=== PATIENT | female | born 1985 | race Hispanic/Latino ===

== ENCOUNTER 2018-06-03 19:44 | Emergency (ER) | payer MEDICAID ==
[2018-06-03 19:51] VITALS: BMI 27.9
[2018-06-03 19:57] VITALS: RESP 18; TEMP 98.1
--- NOTE | 2018-06-03 21:39 | ED PDOC ---
Arrival/HPI - General Chief Complaint: Headache Time Seen by Provider: 06/03/18 20:04 Historian: Patient - History of Present Illness Narrative History of Present Illness (Text): 06/03/18 21:25 33 year old female, whose past medical history includes SLE and Fibromyalgia, presents to the emergency department with fibromyalgia flareup. Patient informs she is having shoulder and upper back discomfort. Patient also complains of a hoarse voice which she states occurs when she has flareup. Patient denies any fever or chills. Patient denies any difficulty swallowing. Patient denies any headache, dizziness, chest pain, shortness of breath, cough, diaphoresis, abdominal pain, nausea, vomiting, diarrhea, or any other complaint. Time/Duration: Prior to Arrival Symptom Onset: Gradual Symptom Course: Unchanged Quality: Aching Activities at Onset: Light Context: Home Past Medical History - Provider Review Nursing Documentation Reviewed: Yes - Infectious Disease Hx of Infectious Diseases: None - Cardiac Hx Hypertension: Yes - Endocrine/Metabolic Hx Systemic Lupus Erythematosus: Yes - Hematological/Oncological Hx Anemia: Yes - Musculoskeletal/Rheumatological Hx Arthritis: Yes Hx Rheumatoid Arthritis: Yes - Psychiatric Hx Substance Use: No - Anesthesia Hx Anesthesia: No Family/Social History - Physician Review Nursing Documentation Reviewed: Yes Family/Social History: No Known Family HX Smoking Status: Never Smoked Hx Alcohol Use: No Hx Substance Use: No Allergies/Home Meds Allergies/Adverse Reactions: Allergies morphine Allergy (Verified 06/03/18 19:51) ANAPHYLAXIS Home Medications: Home Meds Medication Instructions Recorded Confirmed DULoxetine [Cymbalta] 1 cap PO HS 06/03/18 06/03/18 Naproxen [Naprosyn] 1 tab PO PRN PRN 06/03/18 06/03/18 Pregabalin [Lyrica] 1 cap PO DAILY 06/03/18 06/03/18 Review of Systems - Physician Review All systems were reviewed & negative as marked: Yes - Review of Systems Constitutional: absent: Fevers, Night Sweats Respiratory: absent: SOB, Cough Cardiovascular: absent: Chest Pain Gastrointestinal: absent: Abdominal Pain, Diarrhea, Nausea, Vomiting Musculoskeletal: Back Pain Physical Exam Vital Signs Reviewed: Yes Vital Signs Temp Pulse Resp BP Pulse Ox 06/03/18 19:56 98.1 F 88 18 134/98 H 97 Temperature: Afebrile Blood Pressure: Hypertensive Pulse: Regular Respiratory Rate: Normal Appearance: Positive for: Well-Appearing, Non-Toxic, Comfortable Pain Distress: None Mental Status: Positive for: Alert and Oriented X 3 - Systems Exam Head: Present: Atraumatic, Normocephalic Pupils: Present: PERRL Extroacular Muscles: Present: EOMI Conjunctiva: Present: Normal Ears: Present: NORMAL TM Mouth: Present: Moist Mucous Membranes Pharnyx: Present: Normal. No: ERYTHEMA, Uvular Deviation, Strider, Soft Palate/Uvular Edema Neck: Present: Normal Range of Motion. No: Meningeal Signs Respiratory/Chest: Present: Clear to Auscultation, Good Air Exchange. No: Respiratory Distress, Accessory Muscle Use Cardiovascular: Present: Regular Rate and Rhythm, Normal S1, S2. No: Murmurs Abdomen: No: Tenderness, Distention, Peritoneal Signs Back: Present: Normal Inspection Upper Extremity: Present: Normal Inspection, Normal ROM. No: Cyanosis, Edema Lower Extremity: Present: Normal Inspection, Normal ROM. No: Edema Neurological: Present: GCS=15, CN II-XII Intact, Speech Normal, Motor Func Grossly Intact, Normal Sensory Function Skin: Present: Warm, Dry, Normal Color. No: Rashes Psychiatric: Present: Alert, Oriented x 3, Normal Insight, Normal Concentration Medical Decision Making ED Course and Treatment: 06/03/18 21:41 Impression: 33 year old female presents with fibromyalgia and lupus flareup Plan: -- Decadron -- Ultram -- Reassess and disposition Prior Visits: Notes and results from previous visits were reviewed. Progress Notes: - Medication Orders Current Medication Orders: Discontinued Medications Dexamethasone (Decadron Inj) 10 mg IM ONCE ONE Stop: 06/03/18 20:28 Tramadol HCl (Ultram) 50 mg PO STAT STA Stop: 06/03/18 20:28 - Scribe Statement The provider has reviewed the documentation as recorded by the Ajay Pringle Provider Scribe Attestation: All medical record entries made by the Amaniblucía were at my direction and personally dictated by me. I have reviewed the chart and agree that the record accurately reflects my personal performance of the history, physical exam, medical decision making, and the department course for this patient. I have also personally directed, reviewed, and agree with the discharge instructions and disposition. Disposition/Present on Arrival - Present on Arrival Any Indicators Present on Arrival: No History of DVT/PE: No History of Uncontrolled Diabetes: No Urinary Catheter: No History of Decub. Ulcer: No History Surgical Site Infection Following: None - Disposition Have Diagnosis and Disposition been Completed?: Yes Diagnosis: Fibromyalgia muscle pain, SLE (systemic lupus erythematosus) Disposition: HOME/ ROUTINE Disposition Time: 22:10 Patient Plan: Discharge Patient Problems: Current Active Problems Problem Status Onset Fibromyalgia muscle pain Acute SLE (systemic lupus erythematosus) Acute Condition: GOOD Discharge Instructions (ExitCare): Fibromyalgia (DC), Lupus (DC) Additional Instructions: Take meds as prescribed/follow up with your doctor this week Prescriptions: predniSONE [Prednisone] 40 mg PO DAILY #10 tab Tramadol HCl [Ultram] 50 mg PO Q6 PRN #12 tab PRN Reason: Pain, Moderate (4-7) Forms: [facility] ([place]), WORK NOTE
[2018-06-03 22:21] VITALS: BP 134/86; PULSE 90; O2SAT 99
== END 2018-06-03 22:25 | disposition home or self-care (01) ==
LOC: MERGE 19:44 → ED 19:44
DX: M79.7 Fibromyalgia (principal); M32.9 Systemic lupus erythematosus, unspecified; I10 Essential (primary) hypertension; D64.9 Anemia, unspecified
CPT/HCPCS: 96372; 99285; J1100